=== PATIENT | male | born 1995 | race Caucasian/White ===

== ENCOUNTER 2022-10-20 10:24 | Emergency (ER) | payer MEDICAID ==
[~2022-10-20] VITALS: Ht 165.1 cm; Wt 75.0 kg
[2022-10-20 10:42] VITALS: O2SAT 99
[2022-10-20] MEDS ORDERED: KETOROLAC 15MG/ML VIAL IM ONE (11:15)
[2022-10-20] MEDS ORDERED: NAPR-1176 MT (11:57)
[2022-10-20 12:17] VITALS: BP 138/72; PULSE 67; RESP 16; TEMP 97.5
== END 2022-10-20 12:18 | disposition home or self-care (01) ==
LOC: ER 10:24
DX: S83.91XA Sprain of unspecified site of right knee, initial encounter (principal); Z98.890 Other specified postprocedural states; W01.0XXA Fall on same level from slipping, tripping and stumbling without subsequent striking against object, initial encounter; Y93.89 Activity, other specified; Y92.89 Other specified places as the place of occurrence of the external cause; Y99.8 Other external cause status
CPT/HCPCS: 73562; 96372; 99283; J1885; Z7610; L1830

== ENCOUNTER 2023-03-23 17:31 | Emergency (ER) | payer MEDICAID ==
[~2023-03-23] VITALS: Ht 167.6 cm; Wt 75.0 kg
[~2023-03-23 17:31] MED LIST: NAPR-1176 MT
[2023-03-23 17:48] VITALS: O2SAT 98
[2023-03-23 18:23] LABS: CLARITY URINE CLEAR (CLEAR); COLOR URINE YELLOW (YELLOW); GLUCOSE URINE NEGATIVE (NEGATIVE); KETONES URINE NEGATIVE (NEGATIVE); LEUKOCYTE ESTERASE URINE NEGATIVE (NEGATIVE); NITRITE URINE NEGATIVE (NEGATIVE); OCCULT BLOOD URINE 1+ (NEGATIVE); PROTEIN URINE NEGATIVE (NEGATIVE); SPECIFIC GRAVITY URINE 1.013 (1.005-1.030); UROBILINOGEN URINE 0.2 E.U./dL (0.2-1.0)
[2023-03-23] MEDS ORDERED: IBUPROFEN 600MG TABLET PO ONE (18:45)
[2023-03-23] MEDS ORDERED: ACETAMINOPHEN 500MG TABLET PO ONE (18:45)
[2023-03-23 18:57] LABS: BACTERIA URINE TRACE; SQUAMOUS EPITHELIAL CELL URINE RARE /lpf (RARE/1+); WBC URINE 0-2 /hpf (0-2)
[2023-03-23] MEDS ORDERED: ACETAMINOPHEN 500MG TABLET PO NR (20:30)
[2023-03-23] MEDS ORDERED: IBUPROFEN 600MG TABLET PO NR (20:30)
[2023-03-23] MEDS ORDERED: IBUP-2029 MT (21:58)
[2023-03-23 22:15] VITALS: BP 122/66; PULSE 78; RESP 16; TEMP 98.6
== END 2023-03-23 22:37 | disposition home or self-care (01) ==
LOC: ER 17:31
DX: M54.50 Low back pain, unspecified (principal)
CPT/HCPCS: 74176; 76870; 81003; 93976; 99284

== ENCOUNTER 2023-04-25 15:34 | Emergency (ER) | payer MEDICAID, OTHER ==
[~2023-04-25] VITALS: Ht 167.6 cm; Wt 77.0 kg
[~2023-04-25 15:34] MED LIST changes: +IBUP-2029 MT
[2023-04-25 15:52] VITALS: O2SAT 99
[2023-04-25] MEDS ORDERED: IBUPROFEN 800MG TABLET PO ONE (16:30)
[2023-04-25] MEDS ORDERED: CLIN-194 MT (16:34)
[2023-04-25] MEDS ORDERED: IBUP-2030 MT (16:34)
[2023-04-25] MEDS: IBUPROFEN 400MG TABLET PO NR (16:42)
[2023-04-25 17:03] VITALS: BP 133/98; PULSE 89; RESP 18; TEMP 98.1
== END 2023-04-25 17:08 | disposition home or self-care (01) ==
LOC: ER 15:34
DX: K04.7 Periapical abscess without sinus (principal); Z88.0 Allergy status to penicillin
CPT/HCPCS: 99283